=== PATIENT | female | born 1935 | race Caucasian/White ===

== ENCOUNTER 2017-10-02 01:06 | Emergency (ER) | payer SELFPAY ==
[2017-10-02] MEDS: DIPHENHYDRAMINE 25 MG CAP PO (01:43)
[2017-10-02] MEDS: FAMOTIDINE 20 MG TAB PO (01:43)
[2017-10-02] MEDS: predniSONE 20 MG TAB PO (01:43)
== END 2017-10-02 02:19 | disposition home or self-care (01) ==
LOC: E/R 01:06
DX: L24.5 Irritant contact dermatitis due to other chemical products (principal); I16.0 Hypertensive urgency; I10 Essential (primary) hypertension; R40.2142 Coma scale, eyes open, spontaneous, at arrival to emergency department; R40.2252 Coma scale, best verbal response, oriented, at arrival to emergency department; R40.2362 Coma scale, best motor response, obeys commands, at arrival to emergency department
CPT/HCPCS: 99283